=== PATIENT | male | born 1935 | race Caucasian/White ===

== ENCOUNTER 2018-12-21 09:44 | Inpatient (IN) | payer MEDICARE ==
[2018-12-21] VITALS (10 sets, daily range): BP systolic 115–140; BP diastolic 43–60
[~2018-12-21] VITALS: Ht 172.7 cm; Wt 68.0 kg
[2018-12-21 10:41] LABS: CALCIUM 8.3 mg/dL (8.5-10.1); POTASSIUM 4.5 mmol/L (3.5-5.1)
[2018-12-21 10:42] LABS: BASO % 0 % (0-3); EOS % 0 % (0-3); HEMATOCRIT 33.7 % (39.0-53.0); HEMOGLOBIN 11.8 g/dL (13.0-17.5); LYMPH # 0.7 x10^3/uL (1.0-4.8); LYMPH % 10 % (24-48); MEAN CORPUSCULAR HEMOGLOBIN 33 pg (25-35); MEAN CORPUSCULAR HGB CONC 35 g/dL (31-37); MEAN CORPUSCULAR VOLUME 96 fL (79-100); MONO # 0.5 x10^3/uL (0.0-1.1); MONO % 8 % (0-9); NEUT # 5.6 x10^3uL (1.8-7.7); NEUT % 81 % (31-73); PLATELET COUNT 209 x10^3/uL (140-400); RED BLOOD COUNT 3.53 x10^6/uL (4.30-5.70); RED CELL DISTRIBUTION WIDTH 14.2 % (11.5-14.5); WHITE BLOOD COUNT 6.9 x10^3/uL (4.0-11.0)
[2018-12-21 10:47] LABS: TOTAL BILIRUBIN 0.6 mg/dL (0.2-1.0)
[2018-12-21 10:59] LABS: BILIRUBIN,URINE NEGATIVE (NEG); CLARITY,URINE CLEAR; COLOR,URINE YELLOW; NITRITE,URINE NEGATIVE (NEG); PROTEIN,URINE NEGATIVE (NEG-TRACE); UROBILINOGEN,URINE 0.2 mg/dL (0.2 mg/dL)
[2018-12-21 11:10] LABS: PROTHROMBIN TIME PATIENT 13.8 SEC (11.7-14.0)
[2018-12-21] MEDS ORDERED: IOHEXOL 240 MG/ML 50ML VIAL. PO ONE (11:15)
[2018-12-21 11:27] LABS: BACTERIA,URINE 0 /HPF (0-FEW); RBC,URINE OCC /HPF (0-2); SQUAMOUS EPITHELIAL CELL,UR OCC /LPF; WBC,URINE OCC /HPF (0-4)
[2018-12-21] MEDS ORDERED: CONTRAST GIVEN. MC PRN (11:30)
--- NOTE | 2018-12-21 11:46 | RAD ---
Examination: CT of the abdomen pelvis with oral contrast HISTORY: History of right lower quadrant abdominal pain COMPARISON: None available. TECHNIQUE: Axial CT images of the abdomen is performed with oral contrast and cholecystectomy, so performed Exposure: One or more of the following individualized dose reduction techniques were utilized for this examination: 1. Automated exposure control 2. Adjustment of the mA and/or kV according to patient size 3. Use of iterative reconstruction technique FINDINGS: Linear right lung base and left lingula atelectasis. No evidence of free air identified in the abdomen. The evaluation of the solid organs is limited due to lack of IV contrast The visualized noncontrasted liver, spleen, adrenals grossly appears unremarkable. The gallbladder is mildly distended The stomach is mildly distended The visualized pancreas grossly appears unremarkable. The small bowel is nondilated In the right lower quadrant of the abdomen there is a tubular structure measuring 2.7 cm in transverse dimension with surrounding inflammation fat stranding could be inflamed and significantly dilated appendix or a loop of small bowel. Differentiation is difficult. Feces and gas noted in the colon. Urinary bladder is mildly distended. Moderate enlarged prostate gland Mild bilateral perinephric fat stranding, nonspecific. Severe aortic atherosclerosis Moderate degenerative changes thoracic lumbar spine. IMPRESSION: 1.In the right lower quadrant of the abdomen there is a tubular structure measuring 2.7 cm in transverse dimension with surrounding inflammation fat stranding could be inflamed and significantly dilated appendix, suspicious for acute appendicitis, however differentiation from a loop of small bowel is difficult due to multiple small bowel loops in this region. Electronically signed by: David Macdonald MD (12/21/2018 11:43 AM) [facility]
--- NOTE | 2018-12-21 12:06 | PHYS DOC ---
Past Medical History Past Medical History: High Cholesterol, Hypertension, Renal Failure, Other (rheumatoid arthritis) Alcohol Use: Occasionally Drug Use: None Adult General Chief Complaint Chief Complaint: ABDOMINAL PAIN HPI HPI Patient is a 83 year old male who presents with complaining of abdominal pain. Patient complaining of intermittent episodes of right lower quadrant pain for the last 3 weeks that usually happens with sitting down and resolves with activity. Patient rated his pain 4/10 and denies nausea and vomiting, change of appetite, diarrhea and constipation, fever and chills, urinary symptoms, change in weight, history of the same pain. Patient states he had nausea and few episode of vomiting today weeks ago when the pain was started and associated with anorexia that resolved without any treatment. Patient seen by his primary care physician and had unremarkable abdominal ultrasonography 9 days ago. Review of Systems Review of Systems Constitutional: Denies fever or chills [] Eyes: Denies change in visual acuity, redness, or eye pain [] HENT: Denies nasal congestion or sore throat [] Respiratory: Denies cough or shortness of breath [] Cardiovascular: No additional information not addressed in HPI [] GI: Reports abdominal pain, denies nausea, vomiting, bloody stools or diarrhea [] : Denies dysuria or hematuria [] Musculoskeletal: Denies back pain or joint pain [] Integument: Denies rash or skin lesions [] Neurologic: Denies headache, focal weakness or sensory changes [] Endocrine: Denies polyuria or polydipsia [] All other systems were reviewed and found to be within normal limits, except as documented in this note. Current Medications Current Medications Current Medications Medications (Trade) Dose Ordered Sig/Berta Start Time Stop Time Status Last Admin Dose Admin Info (CONTRAST GIVEN -- Rx MONITORING) 1 each PRN DAILY PRN 12/21/18 11:30 12/23/18 11:29 Iohexol (Omnipaque 240 Mg/ml) 30 ml 1X ONCE 12/21/18 11:15 12/21/18 11:29 DC 12/21/18 11:36 30 ML Allergies Allergies Physical Exam Physical Exam Constitutional: Well developed, well nourished, no acute distress, non-toxic appearance. [] HENT: Normocephalic, atraumatic, bilateral external ears normal, oropharynx moist, no oral exudates, nose normal. [] Eyes: PERRLA, EOMI, conjunctiva normal, no discharge. [] Neck: Normal range of motion, no tenderness, supple, no stridor. [] Cardiovascular:Heart rate regular rhythm, no murmur [] Lungs & Thorax: Bilateral breath sounds clear to auscultation [] Abdomen: Bowel sounds normal, soft, right lower quadrant tenderness and rebound tenderness, no masses, no pulsatile masses. [] Skin: Warm, dry, no erythema, no rash. [] Back: No tenderness, no CVA tenderness. [] Extremities: No tenderness, no cyanosis, no clubbing, ROM intact, no edema. [] Neurologic: Alert and oriented X 3, normal motor function, normal sensory function, no focal deficits noted. [] Psychologic: Affect normal, judgement normal, mood normal. [] Current Patient Data Vital Signs Vital Signs Date Time Temp Pulse Resp B/P (MAP) Pulse Ox O2 Delivery O2 Flow Rate FiO2 12/21/18 09:54 97.6 88 16 157/82 (107) 96 97.6 Lab Values Laboratory Tests Test 12/21/18 09:55 12/21/18 10:20 Urine Collection Type Unknown Urine Color Yellow Urine Clarity Clear Urine pH 7.0 Urine Specific [place] 1.010 Urine Protein Negative mg/dL (NEG-TRACE) Urine Glucose (UA) Negative mg/dL (NEG) Urine Ketones (Stick) Negative mg/dL (NEG) Urine Blood Negative (NEG) Urine Nitrite Negative (NEG) Urine Bilirubin Negative (NEG) Urine Urobilinogen Dipstick 0.2 mg/dL (0.2 mg/dL) Urine Leukocyte Esterase Negative (NEG) Urine RBC Occ /HPF (0-2) Urine WBC Occ /HPF (0-4) Urine Squamous Epithelial Cells Occ /LPF Urine Bacteria 0 /HPF (0-FEW) White Blood Count 6.9 x10^3/uL (4.0-11.0) Red Blood Count 3.53 x10^6/uL (4.30-5.70) L Hemoglobin 11.8 g/dL (13.0-17.5) L Hematocrit 33.7 % (39.0-53.0) L Mean Corpuscular Volume 96 fL (79-100) Mean Corpuscular Hemoglobin 33 pg (25-35) Mean Corpuscular Hemoglobin Concent 35 g/dL (31-37) Red Cell Distribution Width 14.2 % (11.5-14.5) Platelet Count 209 x10^3/uL (140-400) Neutrophils (%) (Auto) 81 % (31-73) H Lymphocytes (%) (Auto) 10 % (24-48) L Monocytes (%) (Auto) 8 % (0-9) Eosinophils (%) (Auto) 0 % (0-3) Basophils (%) (Auto) 0 % (0-3) Neutrophils # (Auto) 5.6 x10^3uL (1.8-7.7) Lymphocytes # (Auto) 0.7 x10^3/uL (1.0-4.8) L Monocytes # (Auto) 0.5 x10^3/uL (0.0-1.1) Eosinophils # (Auto) 0.0 x10^3/uL (0.0-0.7) Basophils # (Auto) 0.0 x10^3/uL (0.0-0.2) Prothrombin Time 13.8 SEC (11.7-14.0) Prothrombin Time INR 1.1 (0.8-1.1) Sodium Level 137 mmol/L (136-145) Potassium Level 4.5 mmol/L (3.5-5.1) Chloride Level 103 mmol/L (98-107) Carbon Dioxide Level 24 mmol/L (21-32) Anion Gap 10 (6-14) Blood Urea Nitrogen 26 mg/dL (8-26) Creatinine 2.0 mg/dL (0.7-1.3) H Estimated GFR (Cockcroft-Gault) 32.0 BUN/Creatinine Ratio 13 (6-20) Glucose Level 125 mg/dL (70-99) H Calcium Level 8.3 mg/dL (8.5-10.1) L Total Bilirubin 0.6 mg/dL (0.2-1.0) Aspartate Amino Transferase (AST) 23 U/L (15-37) Alanine Aminotransferase (ALT) 24 U/L (16-63) Alkaline Phosphatase 84 U/L (46-116) Total Protein 6.0 g/dL (6.4-8.2) L Albumin 3.0 g/dL (3.4-5.0) L Albumin/Globulin Ratio 1.0 (1.0-1.7) Lipase 223 U/L (73-393) Laboratory Tests 12/21/18 10:20 Laboratory Tests 12/21/18 10:20 EKG EKG [] Radiology/Procedures Radiology/Procedures [facility] [address] [place] [address] IMAGING REPORT Signed PATIENT: JASS IRIZARRY ACCOUNT: [id number] : 1935 LOCATION: ER AGE: 83 SEX: M EXAM STATUS: REG ER ORD. PHYSICIAN: ILAN GOMEZ MD REASON: right lower quadrant pain PROCEDURE: CT ABD PEL W/ORAL CONTRST ONLY Examination: CT of the abdomen pelvis with oral contrast HISTORY: History of right lower quadrant abdominal pain COMPARISON: None available. TECHNIQUE: Axial CT images of the abdomen is performed with oral contrast and cholecystectomy, so performed Exposure: One or more of the following individualized dose reduction techniques were utilized for this examination: 1. Automated exposure control 2. Adjustment of the mA and/or kV according to patient size 3. Use of iterative reconstruction technique FINDINGS: Linear right lung base and left lingula atelectasis. No evidence of free air identified in the abdomen. The evaluation of the solid organs is limited due to lack of IV contrast The visualized noncontrasted liver, spleen, adrenals grossly appears unremarkable. The gallbladder is mildly distended The stomach is mildly distended The visualized pancreas grossly appears unremarkable. The small bowel is nondilated In the right lower quadrant of the abdomen there is a tubular structure measuring 2.7 cm in transverse dimension with surrounding inflammation fat stranding could be inflamed and significantly dilated appendix or a loop of small bowel. Differentiation is difficult. Feces and gas noted in the colon. Urinary bladder is mildly distended. Moderate enlarged prostate gland Mild bilateral perinephric fat stranding, nonspecific. Severe aortic atherosclerosis Moderate degenerative changes thoracic lumbar spine. IMPRESSION: 1.In the right lower quadrant of the abdomen there is a tubular structure measuring 2.7 cm in transverse dimension with surrounding inflammation fat stranding could be inflamed and significantly dilated appendix, suspicious for acute appendicitis, however differentiation from a loop of small bowel is difficult due to multiple small bowel loops in this region. Electronically signed by: David Macdonald MD (12/21/2018 11:43 AM) [facility] [place] DICTATED and SIGNED BY: DAVID MACDONALD MD DATE: 12/21/18 1143 Course & Med Decision Making Course & Med Decision Making Pertinent Labs and Imaging studies reviewed. (See chart for details) Evaluation of patient in ER showed 83-year-old male patient with right lower quadrant pain for 2 weeks. Patient had right lower quadrant tenderness and rebound tenderness without fever, hypotension, tachycardia. Labs was unremarkable. CT showed abnormal finding in right lower quadrant with concern for acute appendicitis. Dr. Alcala on-call surgeon was consulted at 1213 and recommended to admit patient to hospitalist. Patient did not want to have pain medication in ER. Patient requiring admission for further evaluation and treatm ent. Discussed with Dr. Reagan who is in agreement with admission. Discussed findings and plan with patient and family, who acknowledge understanding and agreement. Dragon Disclaimer Dragon Disclaimer This electronic medical record was generated, in whole or in part, using a voice recognition dictation system. Departure Departure Impression: Primary Impression: Acute appendicitis Additional Impressions: Renal insufficiency Anemia Disposition: 09 ADMITTED INPATIENT (1223) Admitting Physician: Funmilayo Umana (accepted admission at 1222) Condition: IMPROVED Referrals: FUNMILAYO UMANA MD (PCP) Problem Qualifiers Primary Impression: Acute appendicitis Acute appendicitis type: unspecified acute appendicitis type Qualified Codes: K35.80 - Unspecified acute appendicitis Additional Impressions: Anemia Anemia type: unspecified type Qualified Codes: D64.9 - Anemia, unspecified ILAN GOMEZ MD December 21, 2018 12:06
[2018-12-21] MEDS ORDERED: PIPERACILLIN/TAZOBACTAM 3.375 GM in IV NORMAL SALINE 50ML 50 ML IV ONE (12:30)
[2018-12-21] MEDS: IV NORMAL SALINE 1000ML BAG 1,000 ML IV SCH ×2 (12:50→19:08)
--- NOTE | 2018-12-21 13:30 | NUR ---
Pt arrived to unit from ED by mari, ambulated from hallway to his room without difficulties, at bedside. A&Ox4, VSS on RA, c/o abdominal discomfort for last couple of weeks, denies need for pain meds at this time. Hospital policies reviewed, pt informed that pt is to remained NPO until clear by general surgeon, he verbalized understanding. Side rail up x2, call light within reach, will continue to monitor.
[2018-12-21] MEDS ORDERED: BUPIVAC MPF-EPI 0.5%-1:200000 30 ML VIAL. ONE (13:35)
[2018-12-21] MEDS ORDERED: FURO20TA3 PO (14:08)
[2018-12-21] MEDS ORDERED: DOXA8TAB59 PO (14:08)
[2018-12-21] MEDS ORDERED: LOVA40TA2 PO (14:08)
[2018-12-21] MEDS ORDERED: FOLI1TAB16 PO (14:08)
[2018-12-21] MEDS ORDERED: METH2.5T PO (14:08)
[2018-12-21] MEDS ORDERED: ALEN70TA6 PO (14:08)
[2018-12-21] MEDS ORDERED: LISI-334 PO (14:08)
--- NOTE | 2018-12-21 14:24 | PDOC2 ---
CONSULT Date of Consult Date of Consult DATE: 12/21/18 TIME: 14:17 Reason for Consult Reason for Consult: abdominal pain, abnormal CT Referring Physician Referring Physician: Dr Umana Identification/Chief Complaint Chief Complaint RLQ pain Source Source: Chart review, Patient History of Present Illness Reason for Visit: Mr Lyle is an 83 yo gentleman who for the last ten days or so has had some intermittent RLQ pain. Never severe. Had an unremarkable abdominal US nine days ago. Came thru the ED here where CT showed a fluid filled tubular structure possibly acute appendicitis. Past Medical History Cardiovascular: No pertinent hx Pulmonary: No pertinent hx Past Surgical History Past Surgical History: Hernia Repair (right inguinal) Social History No ALCOHOL: none Lives: with Family Current Problem List Problem List Problems Medical Problems: (1) Acute appendicitis Status: Acute (2) Anemia Status: Acute (3) Renal insufficiency Status: Acute Current Medications Current Medications Current Medications Iohexol (Omnipaque 240 Mg/ml) 30 ml 1X ONCE PO Last administered on 12/21/18at 11:36; Start 12/21/18 at 11:15; Stop 12/21/18 at 11:29; Status DC Info (CONTRAST GIVEN -- Rx MONITORING) 1 each PRN DAILY PRN MC SEE COMMENTS; Start 12/21/18 at 11:30; Stop 12/23/18 at 11:29 Sodium Chloride 1,000 ml @ 150 mls/hr Q6H40M IV Last administered on 12/21/18at 12:50; Start 12/21/18 at 12:28; Stop 12/22/18 at 12:27 Piperacillin Sod/ Tazobactam Sod 3.375 gm/Sodium Chloride 50 ml @ 100 mls/hr 1X ONCE IV Last administered on 12/21/18at 12:49; Start 12/21/18 at 12:30; Stop 12/21/18 at 12:59; Status DC Active Scripts Active Reported Folic Acid 1 Mg Tablet 1 Tab PO DAILY Alendronate Sodium 70 Mg Tablet 1 Tab PO WEEKLY Furosemide 20 Mg Tablet 1 Tab PO DAILY Methotrexate (Methotrexate Sodium) 2.5 Mg Tablet 10 Tab PO WEEKLY Lisinopril 20 Mg Tablet 1 Tab PO DAILY Doxazosin Mesylate 8 Mg Tablet 1 Tab PO DAILY Lovastatin 40 Mg Tablet 40 Mg PO HS Allergies Allergies: Coded Allergies: No Known Drug Allergies (Unverified , 5/18/19) ROS Gastrointestinal: Yes Abdominal Pain, Yes Constipation Physical Exam General: Alert, Oriented X3, No acute distress HEENT: Atraumatic Lungs: Normal air movement Heart: Regular rate Abdomen: Soft, No tenderness Skin: Other (warm, dry) Psych/Mental Status: Mental status NL Vitals VITALS Vital Signs Date Time Temp Pulse Resp B/P (MAP) Pulse Ox O2 Delivery O2 Flow Rate FiO2 12/21/18 13:30 98.4 77 16 140/56 (84) 93 Room Air 98.4 Labs Labs Laboratory Tests Test 12/21/18 09:55 12/21/18 10:20 Urine Collection Type Unknown Urine Color Yellow Urine Clarity Clear Urine pH 7.0 Urine Specific [place] 1.010 Urine Protein Negative mg/dL (NEG-TRACE) Urine Glucose (UA) Negative mg/dL (NEG) Urine Ketones (Stick) Negative mg/dL (NEG) Urine Blood Negative (NEG) Urine Nitrite Negative (NEG) Urine Bilirubin Negative (NEG) Urine Urobilinogen Dipstick 0.2 mg/dL (0.2 mg/dL) Urine Leukocyte Esterase Negative (NEG) Urine RBC Occ /HPF (0-2) Urine WBC Occ /HPF (0-4) Urine Squamous Epithelial Cells Occ /LPF Urine Bacteria 0 /HPF (0-FEW) White Blood Count 6.9 x10^3/uL (4.0-11.0) Red Blood Count 3.53 x10^6/uL (4.30-5.70) Hemoglobin 11.8 g/dL (13.0-17.5) Hematocrit 33.7 % (39.0-53.0) Mean Corpuscular Volume 96 fL (79-100) Mean Corpuscular Hemoglobin 33 pg (25-35) Mean Corpuscular Hemoglobin Concent 35 g/dL (31-37) Red Cell Distribution Width 14.2 % (11.5-14.5) Platelet Count 209 x10^3/uL (140-400) Neutrophils (%) (Auto) 81 % (31-73) Lymphocytes (%) (Auto) 10 % (24-48) Monocytes (%) (Auto) 8 % (0-9) Eosinophils (%) (Auto) 0 % (0-3) Basophils (%) (Auto) 0 % (0-3) Neutrophils # (Auto) 5.6 x10^3uL (1.8-7.7) Lymphocytes # (Auto) 0.7 x10^3/uL (1.0-4.8) Monocytes # (Auto) 0.5 x10^3/uL (0.0-1.1) Eosinophils # (Auto) 0.0 x10^3/uL (0.0-0.7) Basophils # (Auto) 0.0 x10^3/uL (0.0-0.2) Prothrombin Time 13.8 SEC (11.7-14.0) Prothromb Time International Ratio 1.1 (0.8-1.1) Sodium Level 137 mmol/L (136-145) Potassium Level 4.5 mmol/L (3.5-5.1) Chloride Level 103 mmol/L (98-107) Carbon Dioxide Level 24 mmol/L (21-32) Anion Gap 10 (6-14) Blood Urea Nitrogen 26 mg/dL (8-26) Creatinine 2.0 mg/dL (0.7-1.3) Estimated GFR (Cockcroft-Gault) 32.0 BUN/Creatinine Ratio 13 (6-20) Glucose Level 125 mg/dL (70-99) Calcium Level 8.3 mg/dL (8.5-10.1) Total Bilirubin 0.6 mg/dL (0.2-1.0) Aspartate Amino Transf (AST/SGOT) 23 U/L (15-37) Alanine Aminotransferase (ALT/SGPT) 24 U/L (16-63) Alkaline Phosphatase 84 U/L (46-116) Total Protein 6.0 g/dL (6.4-8.2) Albumin 3.0 g/dL (3.4-5.0) Albumin/Globulin Ratio 1.0 (1.0-1.7) Lipase 223 U/L (73-393) Laboratory Tests Test 12/21/18 09:55 12/21/18 10:20 Urine Collection Type Unknown Urine Color Yellow Urine Clarity Clear Urine pH 7.0 Urine Specific [place] 1.010 Urine Protein Negative mg/dL (NEG-TRACE) Urine Glucose (UA) Negative mg/dL (NEG) Urine Ketones (Stick) Negative mg/dL (NEG) Urine Blood Negative (NEG) Urine Nitrite Negative (NEG) Urine Bilirubin Negative (NEG) Urine Urobilinogen Dipstick 0.2 mg/dL (0.2 mg/dL) Urine Leukocyte Esterase Negative (NEG) Urine RBC Occ /HPF (0-2) Urine WBC Occ /HPF (0-4) Urine Squamous Epithelial Cells Occ /LPF Urine Bacteria 0 /HPF (0-FEW) White Blood Count 6.9 x10^3/uL (4.0-11.0) Red Blood Count 3.53 x10^6/uL (4.30-5.70) Hemoglobin 11.8 g/dL (13.0-17.5) Hematocrit 33.7 % (39.0-53.0) Mean Corpuscular Volume 96 fL (79-100) Mean Corpuscular Hemoglobin 33 pg (25-35) Mean Corpuscular Hemoglobin Concent 35 g/dL (31-37) Red Cell Distribution Width 14.2 % (11.5-14.5) Platelet Count 209 x10^3/uL (140-400) Neutrophils (%) (Auto) 81 % (31-73) Lymphocytes (%) (Auto) 10 % (24-48) Monocytes (%) (Auto) 8 % (0-9) Eosinophils (%) (Auto) 0 % (0-3) Basophils (%) (Auto) 0 % (0-3) Neutrophils # (Auto) 5.6 x10^3uL (1.8-7.7) Lymphocytes # (Auto) 0.7 x10^3/uL (1.0-4.8) Monocytes # (Auto) 0.5 x10^3/uL (0.0-1.1) Eosinophils # (Auto) 0.0 x10^3/uL (0.0-0.7) Basophils # (Auto) 0.0 x10^3/uL (0.0-0.2) Prothrombin Time 13.8 SEC (11.7-14.0) Prothromb Time International Ratio 1.1 (0.8-1.1) Sodium Level 137 mmol/L (136-145) Potassium Level 4.5 mmol/L (3.5-5.1) Chloride Level 103 mmol/L (98-107) Carbon Dioxide Level 24 mmol/L (21-32) Anion Gap 10 (6-14) Blood Urea Nitrogen 26 mg/dL (8-26) Creatinine 2.0 mg/dL (0.7-1.3) Estimated GFR (Cockcroft-Gault) 32.0 BUN/Creatinine Ratio 13 (6-20) Glucose Level 125 mg/dL (70-99) Calcium Level 8.3 mg/dL (8.5-10.1) Total Bilirubin 0.6 mg/dL (0.2-1.0) Aspartate Amino Transf (AST/SGOT) 23 U/L (15-37) Alanine Aminotransferase (ALT/SGPT) 24 U/L (16-63) Alkaline Phosphatase 84 U/L (46-116) Total Protein 6.0 g/dL (6.4-8.2) Albumin 3.0 g/dL (3.4-5.0) Albumin/Globulin Ratio 1.0 (1.0-1.7) Lipase 223 U/L (73-393) Images Images CT abdomen and pelvis reviewed with the radiologist. Assessment/Plan Assessment/Plan intermittent RLQ pain with abnormal CT, possible appendicitis d/w Mr Lyle and his could treat expectantly given his normal labs and benign PE vs l/s appendectomy with the understanding that this may not be an acute appendicitis (i.e.gastroenteritis, mesenteric adenitis, Meckels diverticulitis) he would like to proceed explained risks including but not limited to bleeding, infection, injury to bowel or bladder requiring further surgical intervention. questions answered Thanks for consult CHAPARRO FRANCO MD December 21, 2018 14:24
--- NOTE | 2018-12-21 14:30 | NUR ---
Pt to PACU by bed, family at bedside.
[2018-12-21] MEDS ORDERED: PROPOFOL 20 ML IV ONE (14:43)
[2018-12-21] MEDS ORDERED: LIDOCAINE 2% TOPICAL JELLY 5GM TUBE. TP ONE (14:43)
[2018-12-21] MEDS ORDERED: SUCCINYLCHOLINE 200 MG/10 ML VIAL. ONE (14:44)
[2018-12-21] MEDS ORDERED: ROCURONIUM 50 MG/5 ML VIAL. ONE (14:44)
[2018-12-21] MEDS ORDERED: MIDAZOLAM HCL/PF 2 MG/2 ML VIAL. ONE (14:45)
[2018-12-21] MEDS ORDERED: fentaNYL PF VIAL 100 MCG/2 ML VIAL ONE (14:45)
[2018-12-21] MEDS ORDERED: ceFAZolin 2GM PREMIX 2 GM/50 ML BAG IV ONE (15:00)
[2018-12-21] MEDS ORDERED: DEXAMETHASONE SOD PHOS 4 MG/ML VIAL ONE (15:20)
[2018-12-21] MEDS ORDERED: ONDANSETRON PF 4 MG/2 ML VIAL. ONE (15:20)
[2018-12-21] MEDS ORDERED: IV RINGERS,LACTATED 1000ML 1,000 ML IV SCH (15:21)
[2018-12-21] MEDS ORDERED: GLYCOPYRROLATE 1 MG/5 ML VIAL. ONE (15:23)
[2018-12-21] MEDS ORDERED: NEOSTIGMINE METHYLSULFATE 5 MG/5 ML SYRINGE. ONE (15:23)
[2018-12-21] MEDS ORDERED: SEVOFLURANE 61 TO 120 MINUTES. IH ONE (15:27)
[2018-12-21] MEDS ORDERED: PROCHLORPERAZINE 10 MG/2 ML VIAL. IV PRN (15:30)
[2018-12-21] MEDS ORDERED: fentaNYL PF VIAL 100 MCG/2 ML VIAL IV PRN ×2 (15:30)
[2018-12-21] MEDS ORDERED: HYDROmorphone 2 MG/ML VIAL IV PRN (15:30)
[2018-12-21] MEDS ORDERED: MORPHINE SULFATE 2 MG/ML VIAL. IV PRN (15:30)
[2018-12-21] MEDS ORDERED: ONDANSETRON PF 4 MG/2 ML VIAL. IV PRN ×2 (15:30→16:45)
[2018-12-21] MEDS ORDERED: LIDOCAINE 1% PF 2 ML VIAL. ID PRN (15:30)
[2018-12-21] MEDS ORDERED: ePHEDrine PF IN SALINE 50 MG/10 ML SYRINGE. IV ONE (15:41)
--- NOTE | 2018-12-21 16:31 | PDOC ---
BRIEF OPERATIVE NOTE Date: December 21, 2018 Pre-Op Diagnosis RLQ pain Post-Op Diagnosis same Procedure Performed l/s Meckel's diverticulectomy Surgeon Fredrick Anesthesia Type: General Blood Loss 10cc IV Fluid 800cc Urine Output 250cc Specimens Obtained Meckel's diverticulum Findings Meckel's without perforation, induration/adhesions of cecum to the lateral pelvic wall Complications none Operative Note Wk # [id number] CHAPARRO FRANCO MD December 21, 2018 16:31
[2018-12-21] MEDS ORDERED: 0.9 % SODIUM CHLORIDE 10 ML DISP.SYRIN. IV PRN (16:45)
[2018-12-21] MEDS ORDERED: HYDROcodone/APAP 5/325MG 1 TAB TABLET PO PRN ×2 (16:45)
[2018-12-21] MEDS ORDERED: diphenhydrAMINE HCL 25 MG CAPSULE PO PRN (16:45)
--- NOTE | 2018-12-21 16:50 | NUR ---
Pt back from PACU, A&Ox4, VSS on 2L NC. Lap sites x3 CDI, ice pack to abd area. Denies nausea or pain at this time. Tolerating ice chips ok, wants to try clear soda for now but nothing else from CL tray. Pt informed of POC. IVF infusing, family at bedside, side rails up x2, call light within reach, will continue to monitor.
--- NOTE | 2018-12-21 19:13 | OP ---
DATE OF SURGERY: 12/21/2018 PREOPERATIVE DIAGNOSIS: Right lower quadrant pain with abnormal CT scan. POSTOPERATIVE DIAGNOSIS: Right lower quadrant pain with abnormal CT scan secondary to Meckel's diverticulum. PROCEDURE: Laparoscopic Meckel's diverticulectomy. SURGEON: Chaparro Franco MD. ANESTHESIA: General endotracheal. ESTIMATED BLOOD LOSS: 10 mL. INTRAVENOUS FLUID: 800 mL. URINE OUTPUT: 250 mL. INDICATIONS: The patient is an 83-year-old gentleman who for the last 10 days or so has had some intermittent right lower quadrant pain. A CT scan done in the ED earlier today showed a tubular structure thought to possibly represent an acute appendicitis. He is brought for laparoscopy. OPERATIVE FINDINGS: The patient had a Meckel's diverticulum in the distal small bowel, which accounted for the tubular structure. There was induration and adhesions of the cecum to the lateral pelvic wall. Visual inspection of the remainder of the abdomen failed to reveal obvious abnormalities. DESCRIPTION OF PROCEDURE: The patient brought to the operating suite, given a general endotracheal anesthetic and the abdomen prepped and draped in usual sterile fashion after placement of a Vega catheter. An epigastric incision was infiltrated with local anesthetic, incised and a 5-mm Visiport used to gain access into the abdominal cavity, taking care to avoid injury to abdominal contents. Pneumoperitoneum established. Camera was inserted and under direct vision, the suprapubic and left lower quadrant ports were placed. With the table rolled to the left, we began to trace the small bowel back from the ileocecal valve and approximately 2 feet from that point, we encountered a Meckel's diverticulum. The blood supply was isolated and divided with a vascular staple augmented with medium large clips. The base of the diverticulum, which was narrow was then divided with the Endo-IVAN tissue stapler oriented to avoid narrowing of the small bowel. Specimen placed in an EndoCatch bag. Intra-abdominal pressure decreased to 6 cm of water. No bleeding from either staple line was seen. Table returned to level. Specimen delivered through the epigastric port. Port site closed with 0 Vicryl. Again, at 6 cm intra-abdominal pressure, no bleeding from the closure of the epigastric port site or from the left lower quadrant port site after its removal, abdomen decompressed, camera removed, no bleeding seen. Skin incision was closed with subcuticular 4-0 Monocryl. Steri-Strips and sterile dressings applied. Vega catheter removed. The patient was awakened from his anesthetic and taken to the recovery room in satisfactory condition. CHAPARRO FRANCO MD DR: Mega JOB#: [id number] / [id number]
[2018-12-21] MEDS: HYDROmorphone 2 MG/ML VIAL IV PRN (21:20)
[2018-12-21] MEDS: DOCUSATE SODIUM 100 MG CAPSULE. PO SCH (21:21)
[2018-12-22] MEDS: IV NORMAL SALINE 1000ML BAG 1,000 ML IV SCH ×2 (01:48→08:28)
[2018-12-22 03:00] VITALS: BP 102/60
[2018-12-22 07:00] VITALS: BP 109/50
[2018-12-22] MEDS: DOCUSATE SODIUM 100 MG CAPSULE. PO SCH (08:42)
[2018-12-22] MEDS: HYDROmorphone 2 MG/ML VIAL IV PRN (08:42)
[2018-12-22] MEDS: ENOXAPARIN 30 MG/0.3 ML SYRINGE. SQ SCH ×2 (08:45→09:00)
--- NOTE | 2018-12-22 09:24 | PDOC ---
SURGICAL PROGRESS NOTE Subjective up to bedside chair no n/v taking clear liquids Vital Signs Vital Signs Date Time Temp Pulse Resp B/P (MAP) Pulse Ox O2 Delivery O2 Flow Rate FiO2 12/22/18 08:42 Room Air 12/22/18 07:00 98.2 66 18 109/50 (69) 93 98.2 12/22/18 00:41 2.0 I&O Intake and Output 12/22/18 07:00 Intake Total 105 ml Output Total 250 ml Balance -145 ml Intake Oral 5 ml IV Total 100 ml Output Urine Total 250 ml # Voids 7 PATIENT HAS A ROYAL: No General: Alert, Oriented X3, No acute distress Abdomen: Soft Labs Laboratory Tests Test 12/21/18 09:55 12/21/18 10:20 Urine Collection Type Unknown Urine Color Yellow Urine Clarity Clear Urine pH 7.0 Urine Specific [place] 1.010 Urine Protein Negative mg/dL (NEG-TRACE) Urine Glucose (UA) Negative mg/dL (NEG) Urine Ketones (Stick) Negative mg/dL (NEG) Urine Blood Negative (NEG) Urine Nitrite Negative (NEG) Urine Bilirubin Negative (NEG) Urine Urobilinogen Dipstick 0.2 mg/dL (0.2 mg/dL) Urine Leukocyte Esterase Negative (NEG) Urine RBC Occ /HPF (0-2) Urine WBC Occ /HPF (0-4) Urine Squamous Epithelial Cells Occ /LPF Urine Bacteria 0 /HPF (0-FEW) White Blood Count 6.9 x10^3/uL (4.0-11.0) Red Blood Count 3.53 x10^6/uL (4.30-5.70) Hemoglobin 11.8 g/dL (13.0-17.5) Hematocrit 33.7 % (39.0-53.0) Mean Corpuscular Volume 96 fL (79-100) Mean Corpuscular Hemoglobin 33 pg (25-35) Mean Corpuscular Hemoglobin Concent 35 g/dL (31-37) Red Cell Distribution Width 14.2 % (11.5-14.5) Platelet Count 209 x10^3/uL (140-400) Neutrophils (%) (Auto) 81 % (31-73) Lymphocytes (%) (Auto) 10 % (24-48) Monocytes (%) (Auto) 8 % (0-9) Eosinophils (%) (Auto) 0 % (0-3) Basophils (%) (Auto) 0 % (0-3) Neutrophils # (Auto) 5.6 x10^3uL (1.8-7.7) Lymphocytes # (Auto) 0.7 x10^3/uL (1.0-4.8) Monocytes # (Auto) 0.5 x10^3/uL (0.0-1.1) Eosinophils # (Auto) 0.0 x10^3/uL (0.0-0.7) Basophils # (Auto) 0.0 x10^3/uL (0.0-0.2) Prothrombin Time 13.8 SEC (11.7-14.0) Prothromb Time International Ratio 1.1 (0.8-1.1) Sodium Level 137 mmol/L (136-145) Potassium Level 4.5 mmol/L (3.5-5.1) Chloride Level 103 mmol/L (98-107) Carbon Dioxide Level 24 mmol/L (21-32) Anion Gap 10 (6-14) Blood Urea Nitrogen 26 mg/dL (8-26) Creatinine 2.0 mg/dL (0.7-1.3) Estimated GFR (Cockcroft-Gault) 32.0 BUN/Creatinine Ratio 13 (6-20) Glucose Level 125 mg/dL (70-99) Calcium Level 8.3 mg/dL (8.5-10.1) Total Bilirubin 0.6 mg/dL (0.2-1.0) Aspartate Amino Transf (AST/SGOT) 23 U/L (15-37) Alanine Aminotransferase (ALT/SGPT) 24 U/L (16-63) Alkaline Phosphatase 84 U/L (46-116) Total Protein 6.0 g/dL (6.4-8.2) Albumin 3.0 g/dL (3.4-5.0) Albumin/Globulin Ratio 1.0 (1.0-1.7) Lipase 223 U/L (73-393) Laboratory Tests Test 12/21/18 09:55 12/21/18 10:20 Urine Collection Type Unknown Urine Color Yellow Urine Clarity Clear Urine pH 7.0 Urine Specific [place] 1.010 Urine Protein Negative mg/dL (NEG-TRACE) Urine Glucose (UA) Negative mg/dL (NEG) Urine Ketones (Stick) Negative mg/dL (NEG) Urine Blood Negative (NEG) Urine Nitrite Negative (NEG) Urine Bilirubin Negative (NEG) Urine Urobilinogen Dipstick 0.2 mg/dL (0.2 mg/dL) Urine Leukocyte Esterase Negative (NEG) Urine RBC Occ /HPF (0-2) Urine WBC Occ /HPF (0-4) Urine Squamous Epithelial Cells Occ /LPF Urine Bacteria 0 /HPF (0-FEW) White Blood Count 6.9 x10^3/uL (4.0-11.0) Red Blood Count 3.53 x10^6/uL (4.30-5.70) Hemoglobin 11.8 g/dL (13.0-17.5) Hematocrit 33.7 % (39.0-53.0) Mean Corpuscular Volume 96 fL (79-100) Mean Corpuscular Hemoglobin 33 pg (25-35) Mean Corpuscular Hemoglobin Concent 35 g/dL (31-37) Red Cell Distribution Width 14.2 % (11.5-14.5) Platelet Count 209 x10^3/uL (140-400) Neutrophils (%) (Auto) 81 % (31-73) Lymphocytes (%) (Auto) 10 % (24-48) Monocytes (%) (Auto) 8 % (0-9) Eosinophils (%) (Auto) 0 % (0-3) Basophils (%) (Auto) 0 % (0-3) Neutrophils # (Auto) 5.6 x10^3uL (1.8-7.7) Lymphocytes # (Auto) 0.7 x10^3/uL (1.0-4.8) Monocytes # (Auto) 0.5 x10^3/uL (0.0-1.1) Eosinophils # (Auto) 0.0 x10^3/uL (0.0-0.7) Basophils # (Auto) 0.0 x10^3/uL (0.0-0.2) Prothrombin Time 13.8 SEC (11.7-14.0) Prothromb Time International Ratio 1.1 (0.8-1.1) Sodium Level 137 mmol/L (136-145) Potassium Level 4.5 mmol/L (3.5-5.1) Chloride Level 103 mmol/L (98-107) Carbon Dioxide Level 24 mmol/L (21-32) Anion Gap 10 (6-14) Blood Urea Nitrogen 26 mg/dL (8-26) Creatinine 2.0 mg/dL (0.7-1.3) Estimated GFR (Cockcroft-Gault) 32.0 BUN/Creatinine Ratio 13 (6-20) Glucose Level 125 mg/dL (70-99) Calcium Level 8.3 mg/dL (8.5-10.1) Total Bilirubin 0.6 mg/dL (0.2-1.0) Aspartate Amino Transf (AST/SGOT) 23 U/L (15-37) Alanine Aminotransferase (ALT/SGPT) 24 U/L (16-63) Alkaline Phosphatase 84 U/L (46-116) Total Protein 6.0 g/dL (6.4-8.2) Albumin 3.0 g/dL (3.4-5.0) Albumin/Globulin Ratio 1.0 (1.0-1.7) Lipase 223 U/L (73-393) Problem List Problems Medical Problems: (1) Acute appendicitis Status: Acute (2) Anemia Status: Acute (3) Renal insufficiency Status: Acute Assessment/Plan POD 1 l/s Meckel's diverticulectomy advance diet home later today likely f/u in office will need colonoscopy (his first ever) when convalesced from this surgery d/w Mr Lyle and his CHAPARRO FRANCO MD December 22, 2018 09:24
--- NOTE | 2018-12-22 10:31 | PDOC ---
PROGRESS NOTES Subjective Subjective Patient reports some soreness in abdomen but denies pain. No nausea, tolerated clears for breakfast. Objective Objective Vital Signs Date Time Temp Pulse Resp B/P (MAP) Pulse Ox O2 Delivery O2 Flow Rate FiO2 12/22/18 08:42 Room Air 12/22/18 07:00 98.2 66 18 109/50 (69) 93 98.2 12/22/18 00:41 2.0 Intake and Output 12/22/18 06:59 Intake Total 105 ml Output Total 250 ml Balance -145 ml Intake Oral 5 ml IV Total 100 ml Output Urine Total 250 ml # Voids 7 Physical Exam Abdomen: Normal bowel sounds, Soft Heart: Regular rate Extremities: No edema General: Alert, Oriented X3, No acute distress Lungs: Clear to auscultation Assessment Assessment Problems Medical Problems: (1) Acute appendicitis Status: Acute (2) Anemia Status: Acute (3) Renal insufficiency Status: Acute Plan Plan of Care 1. Meckel's diverticulitis - POD #1 lap removal of diverticulum. Feels better, ready to go home. Can discharge after lunch if he tolerates full liquids. PO pain meds only. 2. CKD III - creatinine elevated above his usual level on admit lab yesterday, probably due to mild dehydration. Advised increased po fluids today to help with this. 3. HTN - BP mildly low, resume his usual meds tomorrow. Comment Review of Relevant I have reviewed the following items shanna (where applicable) has been applied. Labs Laboratory Tests Test 12/21/18 09:55 12/21/18 10:20 Urine Collection Type Unknown Urine Color Yellow Urine Clarity Clear Urine pH 7.0 Urine Specific [place] 1.010 Urine Protein Negative mg/dL (NEG-TRACE) Urine Glucose (UA) Negative mg/dL (NEG) Urine Ketones (Stick) Negative mg/dL (NEG) Urine Blood Negative (NEG) Urine Nitrite Negative (NEG) Urine Bilirubin Negative (NEG) Urine Urobilinogen Dipstick 0.2 mg/dL (0.2 mg/dL) Urine Leukocyte Esterase Negative (NEG) Urine RBC Occ /HPF (0-2) Urine WBC Occ /HPF (0-4) Urine Squamous Epithelial Cells Occ /LPF Urine Bacteria 0 /HPF (0-FEW) White Blood Count 6.9 x10^3/uL (4.0-11.0) Red Blood Count 3.53 x10^6/uL (4.30-5.70) Hemoglobin 11.8 g/dL (13.0-17.5) Hematocrit 33.7 % (39.0-53.0) Mean Corpuscular Volume 96 fL (79-100) Mean Corpuscular Hemoglobin 33 pg (25-35) Mean Corpuscular Hemoglobin Concent 35 g/dL (31-37) Red Cell Distribution Width 14.2 % (11.5-14.5) Platelet Count 209 x10^3/uL (140-400) Neutrophils (%) (Auto) 81 % (31-73) Lymphocytes (%) (Auto) 10 % (24-48) Monocytes (%) (Auto) 8 % (0-9) Eosinophils (%) (Auto) 0 % (0-3) Basophils (%) (Auto) 0 % (0-3) Neutrophils # (Auto) 5.6 x10^3uL (1.8-7.7) Lymphocytes # (Auto) 0.7 x10^3/uL (1.0-4.8) Monocytes # (Auto) 0.5 x10^3/uL (0.0-1.1) Eosinophils # (Auto) 0.0 x10^3/uL (0.0-0.7) Basophils # (Auto) 0.0 x10^3/uL (0.0-0.2) Prothrombin Time 13.8 SEC (11.7-14.0) Prothromb Time International Ratio 1.1 (0.8-1.1) Sodium Level 137 mmol/L (136-145) Potassium Level 4.5 mmol/L (3.5-5.1) Chloride Level 103 mmol/L (98-107) Carbon Dioxide Level 24 mmol/L (21-32) Anion Gap 10 (6-14) Blood Urea Nitrogen 26 mg/dL (8-26) Creatinine 2.0 mg/dL (0.7-1.3) Estimated GFR (Cockcroft-Gault) 32.0 BUN/Creatinine Ratio 13 (6-20) Glucose Level 125 mg/dL (70-99) Calcium Level 8.3 mg/dL (8.5-10.1) Total Bilirubin 0.6 mg/dL (0.2-1.0) Aspartate Amino Transf (AST/SGOT) 23 U/L (15-37) Alanine Aminotransferase (ALT/SGPT) 24 U/L (16-63) Alkaline Phosphatase 84 U/L (46-116) Total Protein 6.0 g/dL (6.4-8.2) Albumin 3.0 g/dL (3.4-5.0) Albumin/Globulin Ratio 1.0 (1.0-1.7) Lipase 223 U/L (73-393) Medications Current Medications Iohexol (Omnipaque 240 Mg/ml) 30 ml 1X ONCE PO Last administered on 12/21/18at 11:36; Start 12/21/18 at 11:15; Stop 12/21/18 at 11:29; Status DC Info (CONTRAST GIVEN -- Rx MONITORING) 1 each PRN DAILY PRN MC SEE COMMENTS; Start 12/21/18 at 11:30; Stop 12/23/18 at 11:29 Sodium Chloride 1,000 ml @ 150 mls/hr Q6H40M IV Last administered on 12/22/18at 01:48; Start 12/21/18 at 12:28; Stop 12/22/18 at 12:27 Piperacillin Sod/ Tazobactam Sod 3.375 gm/Sodium Chloride 50 ml @ 100 mls/hr 1X ONCE IV Last administered on 12/21/18at 12:49; Start 12/21/18 at 12:30; Stop 12/21/18 at 12:59; Status DC Cefazolin Sodium/ Dextrose 50 ml @ 100 mls/hr 1X ONCE IV ; Start 12/21/18 at 14:15; Stop 12/21/18 at 14:44; Status DC Metronidazole 100 ml @ 100 mls/hr 1X PREOP PRN IV protocol; Start 12/22/18 at 06:00; Stop 12/22/18 at 18:00 Bupivacaine HCl/ Epinephrine Bitart (Sensorcain-Mpf Epi 0.5%-1:[id number]) 30 ml STK-MED ONCE .ROUTE Last administered on 12/21/18at 15:18; Start 12/21/18 at 13:35; Stop 12/21/18 at 14:35; Status DC Propofol 20 ml @ As Directed STK-MED ONCE IV ; Start 12/21/18 at 14:43; Stop 12/21/18 at 14:44; Status DC Lidocaine HCl (Xylocaine 2% Topical 5gm Tube) 5 pooja STK-MED ONCE TP ; Start 12/21/18 at 14:43; Stop 12/21/18 at 14:44; Status DC Succinylcholine Chloride (Anectine) 200 mg STK-MED ONCE .ROUTE ; Start 12/21/18 at 14:44; Stop 12/21/18 at 14:45; Status DC Rocuronium [place] (Zemuron) 50 mg STK-MED ONCE .ROUTE ; Start 12/21/18 at 14:44; Stop 12/21/18 at 14:45; Status DC Midazolam HCl (Versed) 2 mg STK-MED ONCE .ROUTE ; Start 12/21/18 at 14:45; Stop 12/21/18 at 14:46; Status DC Fentanyl Citrate (Fentanyl 2ml Vial) 100 mcg STK-MED ONCE .ROUTE ; Start 12/21/18 at 14:45; Stop 12/21/18 at 14:46; Status DC Metronidazole 100 ml @ As Directed STK-MED ONCE IV ; Start 12/21/18 at 14:56; Stop 12/21/18 at 14:57; Status DC Dexamethasone Sodium Phosphate (Decadron) 4 mg STK-MED ONCE .ROUTE ; Start 12/21/18 at 15:20; Stop 12/21/18 at 15:21; Status DC Ondansetron HCl (Zofran) 4 mg STK-MED ONCE .ROUTE ; Start 12/21/18 at 15:20; Stop 12/21/18 at 15:21; Status DC Ondansetron HCl (Zofran) 4 mg PRN Q6HRS PRN IV NAUSEA/VOMITING; Start 12/21/18 at 15:30; Stop 12/22/18 at 15:29 Fentanyl Citrate (Fentanyl 2ml Vial) 25 mcg PRN Q5MIN PRN IV MILD PAIN 1-3; Start 12/21/18 at 15:30; Stop 12/22/18 at 15:29 Fentanyl Citrate (Fentanyl 2ml Vial) 50 mcg PRN Q5MIN PRN IV MODERATE TO SEVERE PAIN Last administered on 12/21/18at 16:12; Start 12/21/18 at 15:30; Stop 12/22/18 at 15:29 Morphine Sulfate (Morphine Sulfate) 1 mg PRN Q10MIN PRN IV SEVERE PAIN 7-10; Start 12/21/18 at 15:30; Stop 12/22/18 at 15:29 Ringer's Solution 1,000 ml @ 30 mls/hr Q24H IV ; Start 12/21/18 at 15:21; Stop 12/22/18 at 03:20; Status DC Lidocaine HCl (Xylocaine-Mpf 1% 2ml Vial) 2 ml PRN 1X PRN ID PRIOR TO IV START; Start 12/21/18 at 15:30; Stop 12/22/18 at 15:29 Hydromorphone HCl (Dilaudid) 0.5 mg PRN Q10MIN PRN IV SEV PAIN, Second choice; Start 12/21/18 at 15:30; Stop 12/22/18 at 15:29 Prochlorperazine Edisylate (Compazine) 5 mg PACU PRN PRN IV NAUSEA, MRX1 Last administered on 12/21/18at 16:19; Start 12/21/18 at 15:30; Stop 12/22/18 at 15:29 Neostigmine Methylsulfate (Neostigmine Methylsulfate) 5 mg STK-MED ONCE .ROUTE ; Start 12/21/18 at 15:23; Stop 12/21/18 at 15:24; Status DC Glycopyrrolate (Robinul) 1 mg STK-MED ONCE .ROUTE ; Start 12/21/18 at 15:23; Stop 12/21/18 at 15:24; Status DC Sevoflurane (Ultane) 60 ml STK-MED ONCE IH ; Start 12/21/18 at 15:27; Stop 12/21/18 at 15:28; Status DC Ephedrine Sulfate (ePHEDrine PF IN SALINE SYRINGE) 50 mg STK-MED ONCE IV ; Start 12/21/18 at 15:41; Stop 12/21/18 at 15:42; Status DC Diphenhydramine HCl (Benadryl) 25 mg PRN Q6HRS PRN PO ITCHING; Start 12/21/18 at 16:45 Enoxaparin Sodium (Lovenox 30mg Syringe) 30 mg Q24H SQ Last administered on 12/22/18at 08:45; Start 12/22/18 at 09:00 Sodium Chloride (Normal Saline Flush) 3 ml QSHIFT PRN IV AFTER MEDS AND BLOOD DRAWS; Start 12/21/18 at 16:45 Acetaminophen/ Hydrocodone Bitart (Lortab 5/325) 1 tab PRN Q4HRS PRN PO MILD PAIN 1-3; Start 12/21/18 at 16:45 Acetaminophen/ Hydrocodone Bitart (Lortab 5/325) 2 tab PRN Q4HRS PRN PO MODERATE PAIN, SEVERE PAIN; Start 12/21/18 at 16:45 Hydromorphone HCl (Dilaudid) 0.5 mg PRN Q3HRS PRN IV PAIN Last administered on 12/22/18at 08:42; Start 12/21/18 at 16:45 Docusate Sodium (Colace) 100 mg BID PO Last administered on 12/22/18at 08:42; Start 12/21/18 at 21:00 Ondansetron HCl (Zofran) 4 mg PRN Q6HRS PRN IV NAUESA, 1ST CHOICE; Start 12/21/18 at 16:45 Active Scripts Active Reported Folic Acid 1 Mg Tablet 1 Tab PO DAILY Alendronate Sodium 70 Mg Tablet 1 Tab PO WEEKLY Furosemide 20 Mg Tablet 1 Tab PO DAILY Methotrexate (Methotrexate Sodium) 2.5 Mg Tablet 10 Tab PO WEEKLY Lisinopril 20 Mg Tablet 1 Tab PO DAILY Doxazosin Mesylate 8 Mg Tablet 1 Tab PO DAILY Lovastatin 40 Mg Tablet 40 Mg PO HS Vitals/I & O Vital Sign - Last 24 Hours 12/21/18 12/21/18 12/21/18 12/21/18 12:57 13:30 13:30 14:45 Temp 98.4 98.2 98.4 98.2 Pulse 81 77 85 Resp 16 16 16 B/P (MAP) 124/62 (82) 140/56 (84) 158/72 Pulse Ox 98 93 95 O2 Delivery Room Air Room Air Room Air Room Air 12/21/18 12/21/18 12/21/18 12/21/18 16:04 16:12 16:19 16:19 Temp 99.2 99.2 Pulse 74 71 Resp 16 16 16 B/P (MAP) 148/50 148/50 Pulse Ox 97 97 92 O2 Delivery Simple Mask Simple Mask Nasal Cannula Nasal Cannula O2 Flow Rate 10 10.0 2 2 12/21/18 12/21/18 12/21/18 12/21/18 16:34 16:50 16:53 17:00 Temp 97.9 97.9 Pulse 68 75 71 Resp 16 B/P (MAP) 119/52 122/43 (69) 121/45 (70) Pulse Ox 97 96 96 O2 Delivery Nasal Cannula Nasal Cannula O2 Flow Rate 2 12/21/18 12/21/18 12/21/18 12/21/18 17:15 17:30 17:45 18:00 Pulse 67 73 65 67 B/P (MAP) 122/47 (72) 119/51 (73) 122/51 (74) 126/53 (77) Pulse Ox 96 96 96 96 12/21/18 12/21/18 12/21/18 12/21/18 18:30 19:00 20:25 21:20 Temp 98.7 98.7 Pulse 61 75 Resp 16 B/P (MAP) 121/54 (76) 124/53 (76) Pulse Ox 97 90 O2 Delivery Room Air Nasal Cannula Room Air O2 Flow Rate 2.0 12/21/18 12/22/18 12/22/18 12/22/18 23:00 00:41 03:00 07:00 Temp 98.4 98.6 98.2 98.4 98.6 98.2 Pulse 60 64 66 Resp 16 16 18 B/P (MAP) 115/60 (78) 102/60 (74) 109/50 (69) Pulse Ox 93 93 94 93 O2 Delivery Room Air Nasal Cannula Room Air Room Air O2 Flow Rate 2.0 12/22/18 08:42 O2 Delivery Room Air Intake and Output 12/21/18 12/21/18 12/22/18 14:59 22:59 06:59 Intake Total 100 ml 5 ml Output Total 250 ml Balance 100 ml -245 ml CHRISTOPHER GÓMEZ MD December 22, 2018 10:31
[2018-12-22] MEDS ORDERED: HYDR-2761 PO (10:35)
[2018-12-22 11:00] VITALS: BP 128/48
[2018-12-22] MEDS ORDERED: DOXAZOSIN MESYLATE 4 MG TABLET. PO SCH (11:00)
--- NOTE | 2018-12-22 11:33 | SSS ---
ADMIT DATE: 12/22/2018 CHIEF COMPLAINT: Abdominal pain. HISTORY OF PRESENT ILLNESS: The patient is an 83-year-old male who presented to the Emergency Room with the above complaint. He had initially reported the onset of some right upper quadrant abdominal pain to our office 10 days ago. At that time, an abdominal ultrasound was ordered for him. This was done and showed no acute abnormalities. His pain persisted intermittently but gradually worsened and on the day of admission he became quite uncomfortable, so decided to come to the Emergency Room as he had been advised to do. CAT scan of the abdomen and pelvis showed an enlarged tubular structure in the right lower quadrant of the abdomen with surrounding inflammation, thought to possibly represent appendicitis. Dr. Alcala was consulted and the patient was admitted for further care. PAST MEDICAL HISTORY: Hypertension, rheumatoid arthritis, osteoporosis, hyperlipidemia, urinary retention. PAST SURGICAL HISTORY: Prostate biopsy and TURP. ALLERGIES: The patient has no known drug allergies. HOME MEDICATIONS: Alendronate 70 mg weekly, doxazosin 8 mg daily, folic acid 1 mg daily, furosemide 20 mg daily, lisinopril 20 mg daily, lovastatin 40 mg daily, methotrexate 10 tablets once weekly. FAMILY HISTORY: Noncontributory. SOCIAL HISTORY: The patient is and lives at home with his . He does not smoke cigarettes. He does not drink alcohol to excess. REVIEW OF SYSTEMS: The patient denies fever or chills. He denies cough or shortness of breath. He denies chest pain or palpitations. He has had the intermittent abdominal pain as in the HPI. It did seem to usually be located in the right upper quadrant. He did not have any emesis with this, but did have a decreased appetite. He denies diarrhea or constipation. PHYSICAL EXAMINATION: GENERAL: The patient is alert and oriented x 3, resting comfortably in bed, in no acute distress. HEENT: PERRL, EOMI, sclerae clear. Oropharynx: Mucous membranes moist. NECK: Supple, without lymphadenopathy. CHEST: Clear to auscultation. CARDIOVASCULAR: Regular rhythm without murmur. ABDOMEN: Soft, normoactive bowel sounds are present. EXTREMITIES: Without edema. HOSPITAL COURSE: Dr. Alcala took the patient to the operating room yesterday. He found an inflamed Meckel's diverticulum in the distal small bowel and he excised this. He did not see any other abnormalities. The patient tolerated the surgery well. He has been stable postoperatively. He had a clear liquid breakfast this morning and tolerated this without problem. A full liquid tray is ordered for his lunch and he can be discharged to home after lunch if he tolerates this meal. The patient's blood pressure is mildly low. We will hold his lisinopril today and he is advised to resume this and all his other usual oral medications tomorrow at home. The patient has a history of chronic kidney disease stage 3, which has been stable. His creatinine was 2.0 at admission, which is elevated above his baseline. This is felt to be due to some mild dehydration due to his decreased oral intake. He is advised to increase his oral fluids and his lab will continue to be followed in our office. FINAL DIAGNOSES: 1. Meckel diverticulitis. 2. Chronic kidney disease stage 3. 3. Hypertension. 4. Rheumatoid arthritis. DISCHARGE MEDICATIONS: Remain the same as at admission with the addition of [place] 5/325 one q.6 hours p.r.n. severe pain. FOLLOWUP: With Dr. Umana as needed. Follow up with Dr. Alcala as advised. The patient is also advised a screening colonoscopy as he has not had one of these previously. This can be done 6-8 weeks from now after he has healed from his surgery. CHRISTOPHER UMANA MD DR: LAURA/tianna JOB#: [id number] / [id number] THERESA
--- NOTE | 2018-12-22 16:06 | NUR ---
Pt was discharged to home at 1515 today in stable condition with all personal belongings after reviewing all pertinent information including education, medications, follow up and at home care. Pt was escorted via WC and accompanied by staff to the main exit where his drove him home.
--- NOTE | 2018-12-25 10:09 | PATHOLOGY ---
[facility] Accession Number: [id number] . 01 Material submitted: . appendix - APPENDIX . 01 Clinical history: . None provided . 02 Diagnosis: Appendix, appendectomy: - Appendix with diverticulum in tip; no evidence of rupture. - No significant acute or chronic inflammation present in muscular wall. . (SKM:mml; 12/24/2018) QMS/12/24/2018 . 02 Electronically signed: . Parker Crystal MD, Pathologist NPI- [id number] . 01 Gross description: . Received in formalin, labeled "Valdo RAYMUNDO Nic, appendix ", is a disrupted, deformed appendix consisting of two staple lines measuring 2.5 cm in length with an average 0.1 cm diameter (inked black, with adjacent serosa) and 4.0 cm in length with an average 0.1 cm diameter (inked blue, with adjacent serosa). Both the staple lines are removed. The specimen measures 1.8 x 1.7 x 0.6 cm. The specimen is sectioned from the black staple line to show a cystic, jorge soft cut surface. The lumen is dilated with no discrete fecalith. The wall has an average thickness of 0.1 cm. Photographs are taken. The specimen is entirely submitted as follows: A1. Contiguous sections of serosa inked black. A2. Contiguous sections midportion. A3. Contiguous sections of serosa inked blue. ([facility]; 12/23/2018) SHS/SHS . 02 Pathologist provided ICD-10: K38.2 . 02 CPT . 418729 Specimen Comment: A courtesy copy of this report has been sent to Specimen Comment: [phone], , . Specimen Comment: Report sent to ,DR GÓMEZ / DR GOMEZ Performed at: [address] [facility], [place] [id number] MD Chalo Leigh MD Phone: [phone] Performed at: [facility] [address] [place], [place] [id number] MD Barak Lugo MD Phone: [phone]
== END 2018-12-22 15:15 | disposition home or self-care (01) | DRG 331 ==
LOC: ER 09:44 → 4 NORTH 12:15
PROVIDERS: ADMIT Family Medicine; ATTEND Family Medicine
PROC: 0DB84ZZ Excision of Small Intestine, Percutaneous Endoscopic Approach (ICD-10-PCS; principal; 2018-12-21 14:18)
DX: Q43.0 Meckel's diverticulum (displaced) (hypertrophic) (principal); D64.9 Anemia, unspecified; I12.9 Hypertensive chronic kidney disease with stage 1 through stage 4 chronic kidney disease, or unspecified chronic kidney disease; N18.3 Chronic kidney disease, stage 3 (moderate); M06.9 Rheumatoid arthritis, unspecified; E78.5 Hyperlipidemia, unspecified; E86.0 Dehydration; M81.0 Age-related osteoporosis without current pathological fracture; E78.00 Pure hypercholesterolemia, unspecified; Z90.79 Acquired absence of other genital organ(s)
CPT/HCPCS: 36415; 74176; 80053; 81001; 83690; 85025; 85610; 88304; 88307; A7015; J0171; J0330; J0696; J0780; J1100; J1170; J1650; J2250; J2405; J2543; J2704; J2710; J3010; J3490; J7030; Q9966; 99285-25